=== PATIENT | male | born 1995 | race Caucasian/White ===

== ENCOUNTER 2018-08-13 18:04 | Emergency (ER) | payer OTHER | END 2018-08-13 20:46 | disposition home or self-care (01) | LOC: FTE 18:04 | DX: L73.9 Follicular disorder, unspecified (principal); L04.9 Acute lymphadenitis, unspecified | CPT/HCPCS: 87591; 99283 ==

== ENCOUNTER 2018-11-29 14:21 | Emergency (ER) | payer SELFPAY, OTHER | END 2018-11-29 14:48 | disposition left against medical advice (07) | LOC: E/R 14:21 | DX: Z53.21 Procedure and treatment not carried out due to patient leaving prior to being seen by health care provider (principal) ==